=== PATIENT | male | born 1990 | race African-American/Black ===

== ENCOUNTER 2023-03-10 12:43 | Emergency (ER) | payer SELFPAY ==
[2023-03-10 13:39] LABS: BASOPHILS ABSOLUTE AUTO 0.04 10^3/uL (0.00-0.10); BASOPHILS PERCENT AUTO 0.4 % (0.0-1.0); EOSINOPHILS ABSOLUTE AUTO 0.15 10^3/uL (0.10-0.30); EOSINOPHILS PERCENT AUTO 1.6 % (1.0-3.0); HEMATOCRIT 40.9 % (40.0-52.0); IMMATURE GRAN ABSOLUTE AUTO 0.03 10^3/uL (0.00-0.50); IMMATURE GRAN PERCENT AUTO 0.3 % (0.0-5.0); LYMPHOCYTES ABSOLUTE AUTO 1.89 10^3/uL (1.00-4.00); LYMPHOCYTES PERCENT AUTO 19.6 % (20.0-40.0); MEAN CORPUSCULAR HEMOGLOBIN 30.9 pg (27.0-31.0); MEAN CORPUSCULAR HGB CONC 34.2 g/dL (32.0-36.0); MEAN CORPUSCULAR VOLUME 90.3 fL (82.0-92.0); MEAN PLATELET VOLUME 10.2 fL (7.4-10.4); MONOCYTES ABSOLUTE AUTO 0.63 10^3/uL (0.10-0.80); MONOCYTES PERCENT AUTO 6.5 % (2.0-8.0); NEUTROPHILS ABSOLUTE AUTO 6.89 10^3/uL (2.50-7.00); NEUTROPHILS PERCENT AUTO 71.6 % (50.0-70.0); PLATELET COUNT,PLT 311 10^3/uL (150-400); RED BLOOD CELL COUNT 4.53 10^6/uL (4.50-6.00); WHITE BLOOD CELL COUNT,WBC 9.63 10^3/uL (5.00-10.00)
[2023-03-10 13:54] LABS: ANION GAP 13.2 mmol/L (5-15); CALCIUM 8.6 mg/dL (8.7-10.3); CARBON DIOXIDE,CO2 28.8 mmol/L (21.0-32.0); CREATININE 0.83 mg/dL (0.51-1.17); EST CRCL DRUG DOSING (CG) 109.09 mL/min
== END 2023-03-10 14:10 | disposition home or self-care (01) ==
LOC: KA.ED 12:43
DX: E86.0 Dehydration (principal)
CPT/HCPCS: 36415; 80048; 82947; 85025; 99283; 99284